=== PATIENT | female | born 1955 | race Caucasian/White ===

== ENCOUNTER 2021-04-06 13:36 | Emergency (ER) | payer OTHER ==
[2021-04-06 14:36] LABS: BASOPHIL 0.7 % (0-2); EOSINOPHIL 0.7 % (0-7); HCT 43.7 % (37.0-47.0); HGB 15.2 g/dl (12.5-16.0); LYMPHOCYTE 27.8 % (15-48); MCH 32.5 pg (25.0-31.0); MCHC 34.8 g/dL (32.0-36.0); MCV 93.6 fL (78.0-100.0); MONOCYTE 8.4 % (0-12); MPV 10.3 fL (6.0-9.5); NEUTROPHIL 62.1 % (41-80); NRBC 0; PLT 268 K/uL (150-400); RBC 4.67 M/uL (4.20-5.40); RDW 11.6 % (11.5-14.0)
[2021-04-06 14:54] LABS: BUN/CREAT RATIO (CALC) 25.4 RATIO; CREATININE 0.59 mg/dL (0.51-0.95); POTASSIUM 3.8 mmol/L (3.5-5.1)
[2021-04-06] MEDS ORDERED: ANTIVERT25 MG PO (14:59)
== END 2021-04-06 15:16 | disposition home or self-care (01) ==
LOC: FER 13:36
PROVIDERS: Emergency Medicine
DX: H81.10 Benign paroxysmal vertigo, unspecified ear (principal); I10 Essential (primary) hypertension; E78.5 Hyperlipidemia, unspecified; E03.9 Hypothyroidism, unspecified; J45.909 Unspecified asthma, uncomplicated; Z79.899 Other long term (current) drug therapy
CPT/HCPCS: 36415; 80048; 85025; 99284

== ENCOUNTER → 2022-04-10 | Day surgery (SDC) | payer MEDICARE ==
[~2022-04-10] VITALS: Ht 157.5 cm; Wt 56.2 kg
[~2022-04-10] MED LIST: ACYCLOVIR400 MG PO; ALIVE PREMIUM PO; ANTIVERT25 MG PO; DOXYCYCLINE HYC50 MG PO; MELATONIN5 M2 PO; MONTELUKAST SOD10 MG PO; NASACORT16.9 ML; OS-CAL500 MG PO; PRAVASTATIN SOD10 M1 PO; PROLIA60 MG/1 ML IM; SOOLANTRA45 GM TOP; SYNTHROID75 MC1 PO; ZYRTEC10 M3 PO
[2022-04-10 08:24] LABS: HGB 15.2 g/dl (12.5-16.0); MCH 32.7 pg (25.0-31.0); MCHC 35.3 g/dL (32.0-36.0); MCV 92.5 fL (78.0-100.0); MPV 10.7 fL (6.0-9.5); RBC 4.65 M/uL (4.20-5.40); RDW 11.6 % (11.5-14.0); WBC 8.5 K/uL (4.0-10.5)
[2022-04-10 08:41] LABS: ALBUMIN 4.2 g/dL (3.4-5.0); BILIRUBIN - TOTAL 0.4 mg/dL (0.2-1.0); BUN/CREAT RATIO (CALC) 21.2 RATIO; CREATININE 0.52 mg/dL (0.51-0.95); GLOBULIN (CALCULATION) 3.7 g/dL; POTASSIUM 3.8 mmol/L (3.5-5.1); TOTAL PROTEIN 7.9 g/dL (6.4-8.2)
== END | disposition home or self-care (01) ==
LOC: FAS 07:52
PROVIDERS: Surgery
DX: Z12.11 Encounter for screening for malignant neoplasm of colon (principal)
CPT/HCPCS: 36415; 80053; J2250; J2704; J7120